=== PATIENT | male | born 1955 | race Caucasian/White ===

== ENCOUNTER 2017-07-15 13:49 | Emergency (ER) | payer BC ==
[2017-07-15] MEDS ORDERED: Ondansetron ODT TAB* 4 MG PO ONE (13:57)
[2017-07-15] MEDS ORDERED: NS 0.9% 1000 ML*IV.FLUID IV ONE (14:12)
[2017-07-15] MEDS ORDERED: Albuterol/Ipratropium NEB.SOL* Albuterol 2.5 MG/Ipratropium 0.5 MG 3 ML INH ONE (14:12)
[2017-07-15] MEDS ORDERED: Acetaminophen TAB* 325 MG PO ONE (14:12)
[2017-07-15] MEDS ORDERED: Albuterol 2.5 MG/3 ML NEB.SOL* (0.083%) INH ONE (14:50)
[2017-07-15 14:57] LABS: Hematocrit 49 % (42-52); Mean Corpuscular HGB Conc 33 g/dl (31-36); Mean Corpuscular Hemoglobin 26 pg (27-31); Mean Corpuscular Volume 80 fL (80-94); Mean Platelet Volume 9 um3 (7.4-10.4); Red Blood Count 6.08 10^6/ul (4.0-5.4); Red Cell Distribution Width 14 % (10.5-15); White Blood Count 11.4 10^3/ul (3.5-10.8)
[2017-07-15 15:07] LABS: ALT 33 U/L (7-52); Albumin 4.5 g/dL (3.2-5.2); Alkaline Phosphatase 57 U/L (34-104); Blood Urea Nitrogen 14 mg/dL (6-24); C Reactive Protein 11.92 mg/L (< 5.00); CO2 Carbon Dioxide 25 mmol/L (22-32); Calcium 9.2 mg/dL (8.6-10.3); Chloride 102 mmol/L (101-111); EGFR African American 89.1 (>60); EGFR Non-African American 69.3 (>60); Globulin 3.8 g/dL (2-4); Glucose 93 mg/dL (70-100); Sodium 135 mmol/L (133-145); Total Protein 8.3 g/dL (6.4-8.9)
[2017-07-15 15:08] LABS: Anion Gap 8 mmol/L (2-11)
--- NOTE | 2017-07-15 15:19 | RAD ---
INDICATION: Cough COMPARISON: Chest x-ray dated October 04, 2015 TECHNIQUE: Single AP portable view of the chest was obtained. FINDINGS: Image quality is compromised due to the relative inferiority of a portable chest x-ray. The heart and mediastinum exhibit normal size and contour. The lungs are grossly clear. There is no evidence of a large pleural effusion. Visualized bones are normal for the patient's age. IMPRESSION: No radiographic evidence for acute cardiopulmonary abnormality on this portable chest x-ray.
[2017-07-15] MEDS ORDERED: Oseltamivir CAP* 75 MG PO ONE (16:05)
[2017-07-15] MEDS ORDERED: Codeine TAB* 30 MG PO ONE (16:23)
[2017-07-15 16:45] VITALS: BP 115/68
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
== END 2017-07-15 16:48 | disposition home or self-care (01) ==
LOC: ED 13:49
DX: J09.X2 Influenza due to identified novel influenza A virus with other respiratory manifestations (principal); R50.9 Fever, unspecified; R06.02 Shortness of breath; R09.81 Nasal congestion; Z87.891 Personal history of nicotine dependence
CPT/HCPCS: 36415; 71010; 80053; 83605; 85025; 85610; 85730; 86140; 87040; 87502; 94640; 99283; A9270-GY

== ENCOUNTER 2018-07-19 08:03 | Emergency (ER) | payer BC ==
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
[2018-07-19 08:53] LABS: Urine Appearance Cloudy; Urine Blood Negative (Negative); Urine Color Yellow; Urine Ketones Negative (Negative); Urine Protein Negative (Negative); Urine Specific Gravity 1.019 (1.010-1.030); Urine Urobilinogen Negative (Negative)
[2018-07-19] MEDS ORDERED: Magnesium CITRATE* 300 ML BTL PO ONE (09:47)
[2018-07-19 11:12] VITALS: BP 141/85
== END 2018-07-19 10:37 | disposition home or self-care (01) ==
LOC: ED 08:03
DX: K59.00 Constipation, unspecified (principal); R30.0 Dysuria; I25.10 Atherosclerotic heart disease of native coronary artery without angina pectoris; Z87.891 Personal history of nicotine dependence
CPT/HCPCS: 81003; 99282; A9270-GY

== ENCOUNTER 2019-03-03 08:54 | Emergency (ER) | payer BC ==
[2019-03-03 09:08] VITALS: BP 119/73
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
== END 2019-03-03 11:00 | disposition home or self-care (01) ==
LOC: UCEAST 08:54
DX: S93.601A Unspecified sprain of right foot, initial encounter (principal); X58.XXXA Exposure to other specified factors, initial encounter; Y92.9 Unspecified place or not applicable; E78.5 Hyperlipidemia, unspecified
CPT/HCPCS: 99212; G0463

== ENCOUNTER 2019-04-10 18:09 | Observation (INO) | payer BC ==
[2019-04-10] MEDS ORDERED: NS 0.9% 1000 ML** 1,000 ML IV ONE (18:21)
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
[2019-04-10 18:50] LABS: ABS Basophils 0.1 10^3/ul (0-0.2); ABS Eosinophils 0.2 10^3/ul (0-0.6); ABS Lymphocytes 2.4 10^3/ul (1.0-4.8); ABS Monocytes 1.4 10^3/ul (0-0.8); ABS Neutrophils 5.3 10^3/ul (1.5-7.7); Eosinophil % 2.5 %; Hematocrit 47 % (42-52); Hemoglobin 15.9 g/dL (14.0-18.0); Lymphocyte % 25.6 %; Mean Corpuscular HGB Conc 34 g/dL (31-36); Mean Corpuscular Hemoglobin 27 pg (27-31); Mean Corpuscular Volume 80 fL (80-94); Mean Platelet Volume 8.6 fL (7.4-10.4); Nucleated Red Blood Cells % 0.1; Platelet Count 237 10^3/uL (150-450); Red Blood Count 5.96 10^6 /uL (4.18-5.48); Red Cell Distribution Width 14 % (10-15); White Blood Count 9.5 10^3/uL (3.5-10.8)
[2019-04-10 19:00] LABS: Activated Partial Thrombo Time 30.5 seconds (26.0-38.0)
[2019-04-10 19:07] LABS: Albumin 4.1 g/dL (3.2-5.2); Albumin/Globulin Ratio 1.4 (1-3); BUN/Creatinine Ratio 13.4 (8-20); Calcium 9.5 mg/dL (8.6-10.3); EGFR African American 79.9 (>60); HDL Cholesterol 40.5 mg/dL; Potassium 3.8 mmol/L (3.5-5.0); Total Bilirubin 0.4 mg/dL (0.2-1.0); Total Protein 7.1 g/dL (6.4-8.9)
[2019-04-10 19:08] LABS: Troponin I 0.01 ng/mL (<0.04)
--- NOTE | 2019-04-10 19:14 | ED ---
Progress - Progress Note Progress Note: Patient is received as a sign out from Dr. Pack to Dr. Mullen at 189904/10/19 shift change pending EKG, labs, and disposition of this code karen patient. Labs showed RBC 5.96, absolute monos 1.4, lactica acid < 0.3. POC glucose was 91. Triglycerides was 264, cholesterol 143, LDL cholesterol 50, HDL cholesterol 40.5, trop 0. 1913 EKG - NSR at 62 BPM, P waves, QRS complex, and T waves are within normal limits, T waves and intervals are normal, no ischemic changes. This is a normal EKG. 1941 - Patient's case was discussed with Dr. Helm, Dr. Helm accepts the patient for admission. - EKG/XRAY/CT EKG: NSR - rate of 74 BPM, rhythm - sinus Re-Evaluation - Re-Evaluation First Eval Re-Evaluation Time: 18:40 Comment: Patient is alert and oriented x3, no acute focal neurological deficits. Course/Dx - Course Course Of Treatment: Patient is received as a sign out from Dr. Pack to Dr. Mullen at 189904/10/19 shift change pending EKG, labs, and disposition of this junito jones patient. Labs showed RBC 5.96, absolute monos 1.4, lactica acid < 0.3. POC glucose was 91. Triglycerides was 264, cholesterol 143, LDL cholesterol 50, HDL cholesterol 40.5, trop 0. 1913 EKG - NSR at 62 BPM, P waves , QRS complex, and T waves are within normal limits, T waves and intervals are normal, no ischemic changes. This is a normal EKG. 1941 - Patient's case was discussed with Dr. Helm, Dr. Helm accepts the patient for admission. - Diagnoses Provider Diagnoses: TIA (transient ischemic attack) During the Visit The Following Alert/Code Occurred: Junito Borges - called at 1814 - Provider Notifications Discussed Care Of Patient With: Nicole Helm Time Discussed With Above Provider: 19:42 Instructed by Provider To: Other - 1941 - Patient's case was discussed with Dr. Helm, Dr. Helm accepts the patient for admission. Discharge ED - Sign-Out/Discharge Documenting (check all that apply): Patient Departure - admit Patient Received Moderate/Deep Sedation with Procedure: No - Discharge Plan Condition: Stable Disposition: ADMITTED TO [facility] - Billing Disposition and Condition Condition: STABLE Disposition: Admitted to [facility] - Attestation Statements Document Initiated by Jeff: Yes Documenting Scribe: STEVEN GRIMM Provider For Whom Jeff is Documenting (Include Credential): GUERITA MULLEN MD Scribe Attestation: STEVEN Mandujano, scribed for GUERITA MULLEN MD on 04/11/19 at 0306. Scribe Documentation Reviewed: Yes Provider Attestation: The documentation as recorded by the STEVEN triana accurately reflects the service I personally performed and the decisions made by me, GUERITA MULLEN MD Status of Scribe Document: Viewed
[2019-04-10 20:32] LABS: Urine Appearance Clear; Urine Bilirubin Negative (Negative); Urine Blood Negative (Negative); Urine Color Yellow; Urine Glucose Negative (Negative); Urine Ketones Negative (Negative); Urine Nitrite Negative (Negative); Urine Protein Negative (Negative); Urine Specific Gravity 1.012 (1.010-1.030); Urine Urobilinogen Negative (Negative)
[2019-04-10] MEDS ORDERED: Enoxaparin(*) 40 MG/0.4 ML SYR SUBCUT SCH (21:00)
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
[2019-04-11 05:34] LABS: ABS Basophils 0.1 10^3/ul (0-0.2); ABS Eosinophils 0.2 10^3/ul (0-0.6); ABS Lymphocytes 2.7 10^3/ul (1.0-4.8); ABS Neutrophils 4.1 10^3/ul (1.5-7.7); Eosinophil % 2.7 %; Hematocrit 44 % (42-52); Hemoglobin 14.9 g/dL (14.0-18.0); Lymphocyte % 33.4 %; Mean Corpuscular HGB Conc 34 g/dL (31-36); Mean Corpuscular Hemoglobin 27 pg (27-31); Mean Corpuscular Volume 80 fL (80-94); Mean Platelet Volume 8.7 fL (7.4-10.4); Nucleated Red Blood Cells % 0.1; Platelet Count 210 10^3/uL (150-450); Red Blood Count 5.55 10^6 /uL (4.18-5.48); Red Cell Distribution Width 14 % (10-15); White Blood Count 8.1 10^3/uL (3.5-10.8)
[2019-04-11 05:50] LABS: BUN/Creatinine Ratio 15.2 (8-20); Calcium 8.5 mg/dL (8.6-10.3); EGFR African American 92.1 (>60); EGFR Non-African American 76.1 (>60); HDL Cholesterol 34.7 mg/dL
[2019-04-11] MEDS ORDERED: Tamsulosin CAP* 0.4 MG PO SCH (09:00)
[2019-04-11] MEDS ORDERED: Aspirin EC TAB* 81 MG TAB.EC PO SCH (09:00)
[2019-04-11] MEDS ORDERED: Perflutren Lipid Microsphere* 3 ML VIAL ONE (11:14)
[2019-04-11 13:13] VITALS: BP 143/77
--- NOTE | 2019-04-11 13:32 | ECHO ---
*[facility]* [place] [address] Fax #: [phone] Transthoracic Echocardiogram Patient: Raghu Razo : 1955 Study Date: 04/11/2019 Age: 63 Gender: M HR: 61 bpm Height: 67 in /170.2 cm BSA: 2.11 m^2 Weight: 219.5 lb /99.8 kg BMI: 34.5 kg/m^2 *Table Keeper: * Shayla Arenas RDCS RN *Referring Physician: * Carolynn Nails *Reading Physician: * Juan Diego Morales MD Indications: TIA. History: Coronary artery disease with stent to left anterior descending coronary artery in 2009. Risk factors: Diabetes mellitus. Obese. Dyslipidemia. Conclusions Summary: - Left ventricle: The cavity size is normal. Wall thickness is mildly increased. Doppler parameters are consistent with abnormal left ventricular relaxation (grade 1 diastolic dysfunction). - Right ventricle: The cavity size is mildly to moderately dilated. Wall thickness is mildly increased. Systolic function is mildly reduced. - Atrial septum: Bubble study was negative - Tricuspid valve: There is trace to mild regurgitation. Study data: Transthoracic echocardiogram. Procedure: Transthoracic echocardiography was performed. Image quality was fair. The study was technically limited due to body habitus. Intravenous agitated saline was administered. A bubble study was performed on Images 100-102. Definity 2 ml was given IV for image enhancement. Complete 2D, spectral Doppler, and color flow Doppler. Location: Bedside. Patient status: Observation. Patient room number: 443-01. No prior study is available for comparison. Rhythm: Normal sinus rhythm. Findings Left ventricle: The cavity size is normal. Wall thickness is mildly increased. Systolic function is normal. The estimated ejection fraction is 55-60%. Wall motion is normal; there are no regional wall motion abnormalities. Doppler parameters are consistent with abnormal left ventricular relaxation (grade 1 diastolic dysfunction). Right ventricle: The cavity size is mildly to moderately dilated. Wall thickness is mildly increased. Systolic function is mildly reduced. Left atrium: The atrium is normal in size. Right atrium: The atrium is normal in size. Atrial septum: No defect or patent foramen ovale is identified. Bubble study was negative Images 100-102. Mitral valve: The leaflets are mildly thickened. There is no evidence of stenosis. There is trace regurgitation. Aortic valve: The valve is trileaflet. The leaflets are mildly thickened. There is no evidence of stenosis. There is no regurgitation. Tricuspid valve: The leaflets are normal thickness. There is no evidence of stenosis. There is trace to mild regurgitation. Pulmonic valve: The leaflets are normal thickness. There is no evidence of stenosis. There is trace regurgitation. Aorta: Aortic root: The aortic root is not dilated. Ascending aorta: The ascending aorta is not dilated. Aortic arch: The aortic arch is not visualized. Pericardium: A prominent pericardial fat pad is present. There is no pericardial effusion. Pulmonary arteries: The main pulmonary artery is normal-sized. Systolic pressure can not be accurately estimated. Systemic veins: Inferior vena cava: The vessel is normal in size. There is (>= 50%) respiratory change in the IVC dimension. Measurements Left ventricle Value Ref Right atrium Value Ref SAIDA, LAX 4.5 cm 4.2 - 5.8 ML dim, ES, A4C 3.6 cm 2.6 - 4.4 ESD, LAX 3.0 cm 2.5 - 4.0 SI dim, ES, A4C 4.2 cm 3.4 - 5.3 FS, LAX 33 % 25 - 43 Estimated RAP 3 mm Hg --------- FS 33 % 25 - 43 PW, ED (H) 1.2 cm 0.6 - 1.0 Aortic valve Value Ref IVS/PW, ED 0.99 Alejandro diam, ED 2.0 cm --------- E', lat alejandro, TDI (L) 7.6 cm/sec >=10.0 Peak v, S 0.99 m/sec --- ------ E/e', lat alejandro, 10 VTI, S 20.9 cm ------ --- TDI Mean grad, S 2.0 mm Hg --------- E', med alejandro, TDI (L) 6.5 cm/sec >=7.0 Peak grad, S 4.0 mm Hg --- ------ E/e', med alejandro, 12 LVOT/AV, VTI ratio 0.84 ------ --- TDI E', avg, TDI 7.1 cm/sec Mitral valve Value Ref E/e', avg, TDI 11 <=14 Peak E 0.78 m/sec --- ------ Peak A 0.71 m/sec --------- LVOT Value Ref Decel time 201 ms --------- Peak boris, S 0.73 m/sec Peak grad, D 2.4 mm Hg --------- VTI, S 17.6 cm Peak E/A ratio 1.1 --------- Mean grad, S 1 mm Hg Pulmonic valve Value Ref Ventricular septum Value Ref Peak v, S 0.77 m/sec --------- IVS, ED (H) 1.2 cm 0.6 - 1.0 Peak grad, S 2.0 mm Hg --------- Right ventricle Value Ref Aortic root Value Ref AW thickness, ED (H) 0.6 cm 0.1 - 0.5 Root diam 3.0 cm <4.2 SAIDA, LAX 3.8 cm SAIDA minor ax, (H) 4.1 cm 1.9 - 3.5 Ascending aorta Value Ref A4C mid AAo AP diam, S 3.3 cm --------- Left atrium Value Ref Inferior vena cava Value Ref AP dim, ES 4.00 cm 3.00 - Diam 1.5 cm --------- 4.00 ML dim, A4C 3.9 cm SI dim, A4C 4.1 cm Vol/bsa, ES, 1-p 17 ml/m^2 12 - 37 A4C Vol/bsa, ES, A/L 22 ml/m^2 16 - 34 Legend: (L) and (H) mike values outside specified reference range. Prepared and electronically signed by Juan Diego Morales MD 04/11/2019 13:31
[2019-04-11] MEDS ORDERED: Atorvastatin* 20 MG TAB PO SCH (18:00)
--- NOTE | 2019-04-13 00:20 | DS ---
CC: Dr. Tyson DISCHARGE SUMMARY: DATE OF ADMISSION: 04/10/19 DATE OF DISCHARGE: 04/11/19 PRIMARY DIAGNOSIS: Episodic confusion, transient ischemic attack ruled out. SECONDARY DIAGNOSES: 1. Coronary artery disease. 2. Hyperlipidemia. 3. Benign prostatic hypertrophy. 4. Diet-controlled diabetes. 5. History of back surgery following trauma. MEDICATIONS: On discharge: 1. Aspirin 81 mg p.o. q. day. 2. Simvastatin 40 mg p.o. q.p.m. 3. Tamsulosin 0.4 mg p.o. q. day. HOSPITAL COURSE: The patient is a 63-year-old patient with coronary artery disease, was admitted with episode of confusion that began after he took a nap at 3:00 in the afternoon. Please see the history and physical for full details of his presentation. There was initial concern of TIA versus transient global amnesia. The patient was admitted to observation, telemetry had MRI of the brain that showed no acute findings. Carotid Doppler study on the day of discharge showed left 50% stenosis at the origin of both internal carotid arteries. Echocardiogram, on 04/11/19, also did not show any cardioembolic source and showed ejection fraction of 55% to 60%, and no aortic or mitral valve disease. Laboratory testing showed normal complete blood counts and coagulation studies. Hemoglobin A1c was 6.0. Troponin was 0.01. Cholesterol showed LDL of 53. Lactic acid was normal. Urinalysis was negative. In summary, the patient had episode of confusion after waking up that did not clearly fall into a TIA or transient global amnesia pattern. No ME was found. No stroke. The patient was discharged home. DISPOSITION: To home. ACTIVITY: As tolerated. DIET: Heart-healthy diet. STATUS: Observation. FOLLOWUP: With Dr. Tyson within 1 week. CONDITION: Stable. [id number]/[facility] #: [id number] [facility]
== END 2019-04-11 15:00 | disposition home or self-care (01) ==
LOC: ED 18:09 → MEDTELE 20:33
PROVIDERS: ADMIT Hospitalist; ATTEND Internal Medicine
DX: R41.0 Disorientation, unspecified (principal); I25.10 Atherosclerotic heart disease of native coronary artery without angina pectoris; E78.5 Hyperlipidemia, unspecified; N40.0 Benign prostatic hyperplasia without lower urinary tract symptoms; E11.9 Type 2 diabetes mellitus without complications; Z87.828 Personal history of other (healed) physical injury and trauma; Z79.82 Long term (current) use of aspirin; Z79.899 Other long term (current) drug therapy; Z87.01 Personal history of pneumonia (recurrent); K21.9 Gastro-esophageal reflux disease without esophagitis; Z95.5 Presence of coronary angioplasty implant and graft
CPT/HCPCS: 36415; 70450; 70551; 71045; 80048; 80053; 80061; 81003; 83036; 83605; 84484; 85025; 85610; 85730; 93005; 93306; 93880; 99285; A9270-GY; C8929; G0378; J1650